=== PATIENT | male | born 1985 | race Caucasian/White ===

== ENCOUNTER 2022-03-21 12:56 | Emergency (ER) | payer OTHER ==
[2022-03-21 14:16] LABS: ESTIMATED GFR 112 mL/min (>60)
[2022-03-21] MEDS ORDERED: Acetaminophen 325 MG Tab PO ONE (15:49)
== END 2022-03-21 16:02 | disposition home or self-care (01) ==
LOC: JP.ED 12:56
DX: K57.92 Diverticulitis of intestine, part unspecified, without perforation or abscess without bleeding (principal); F17.210 Nicotine dependence, cigarettes, uncomplicated; Z88.6 Allergy status to analgesic agent; Z88.2 Allergy status to sulfonamides; Z79.899 Other long term (current) drug therapy; Z20.822 Contact with and (suspected) exposure to COVID-19
CPT/HCPCS: 36415; 74176; 80053; 81001; 83605; 85025; 87635; 99284; A9270; U0002